=== PATIENT | male | born 1960 | race Caucasian/White ===

== ENCOUNTER 2016-03-29 21:02 | Inpatient (IN) | payer MEDICAID, OTHER ==
[~2016-03-29] VITALS: Ht 191.8 cm; Wt 104.3 kg
[~2016-03-29 21:02] MED LIST: CARD120T4 PO; LISI10TA PO
[2016-03-29 21:08] VITALS: BP 211/134; PULSE 104; RESP 18; TEMP 97.9; O2SAT 92
[2016-03-29 22:49] VITALS: BP 201/123; PULSE 91; RESP 18; O2SAT 97
[2016-03-29] MEDS ORDERED: SODIUM CHLORIDE 0.9% FLUSH 5 ML FLUSH IVF PRN (23:15)
[2016-03-29] MEDS ORDERED: NITROGLYCERIN 2% OINT 1 GM PACKET TOP ONE (23:15)
--- NOTE | 2016-03-29 23:41 | RADRPT ---
EXAM DATE/TIME: 03/29/2016 23:27 [facility] COMPARISON: CHEST SINGLE AP, September 06, 2009, 23:27. INDICATIONS : Cough, shortness of breath. MEDICAL HISTORY : None. SURGICAL HISTORY : None. ENCOUNTER: Initial ACUITY: 1 day PAIN SCORE: 0/10 LOCATION: Bilateral chest FINDINGS: A single view of the chest demonstrates the lungs to be symmetrically aerated without evidence of mas s, infiltrate or effusion. The heart is normal size for AP film. The central bronchopulmonary trino ngs in both hemidiaphragms are well delineated. Osseous structures are intact. CONCLUSION: The lungs are clear. Luis Marrero MD on March 29, 2016 at 23:39 Board Certified Radiologist. This report was verified electronically.
[2016-03-29 23:56] LABS: AUTOMATED NEUTROPHIL # 3.6 TH/MM3 (1.8-7.7); BASOPHIL % 0.8 % (0.0-2.0); EOSINOPHIL # 0.3 TH/MM3 (0-0.4); EOSINOPHIL % 5.6 % (0.0-4.0); HEMATOCRIT 44.5 % (39.0-51.0); HEMO FLAGS DIFF FINAL; LYMPHOCYTE # 1.2 TH/MM3 (1.0-4.8); MEAN CELL VOLUME 85.2 FL (80.0-100.0); MONO % 11.9 % (0.0-8.0); NEUT % 60.7 % (16.0-70.0); PLATELET COUNT 176 TH/MM3 (150-450); RED BLOOD COUNT 5.22 MIL/MM3 (4.50-5.90); RED CELL DISTRIBUTION WIDTH 13.5 % (11.6-17.2); WHITE BLOOD COUNT 5.9 TH/MM3 (4.0-11.0)
[2016-03-30] VITALS (19 sets, daily range): BP systolic 130–158; BP diastolic 78–103; PULSE 61–76; RESP 16–18; TEMP 97.7–98.3; O2SAT 94–100
[2016-03-30 00:04] LABS: APTT (PATIENT) 27.6 SEC (24.3-30.1); PROTHROMBIN TIME - PATIENT 10.7 SEC (9.8-11.6)
[2016-03-30 00:12] LABS: BICARBONATE 26.6 MEQ/L (21.0-32.0); MAGNESIUM 1.9 MG/DL (1.5-2.5)
--- NOTE | 2016-03-30 00:18 | PD ---
HPI Chief Complaint: Respiratory Symptoms Time Seen by Provider: 23:06 Travel History International Travel<30 days: No Contact w/Intl Traveler<30days: No Traveled to known affect area: No History of Present Illness HPI 55-year-old male came to the emergency room with history of sudden onset shortness of breath and was sitting and watching TV today at 8 PM. He says he coughed up Blood twice. No history of chest pain. Patient has not seen a primary care doctor in 10 years. His blood pressure in triage was more than 200 systolic. He says his symptoms have much improved since when it started first. He has never had these symptoms in the past. Patient is not on any medications. [facility] Past Medical History Narrative Medical List of his past medical history as reviewed from the nursing note. He is not a smoker and there is no family history of coronary artery disease. Heart Rhythm Problems: No Cardiac Catheterization: No Cardiovascular Problems: No High Cholesterol: No Congestive Heart Failure: No Diabetes: No Hypertension: No Kidney Stones: Yes Myocardial Infarction: No Past Surgical History Coronary Artery Bypass Graft: No Other Surgery: Yes (LITHOTRIPSY - MULTIPLE TIMES) Social History Alcohol Use: No Tobacco Use: No Substance Use: No Allergies-Medications (Allergen,Severity, Reaction): Coded Allergies: Levaquin (Verified Allergy, Mild, HIVES, 03/29/16) Comments List of his allergies reviewed from the nursing note. Reported Meds & Prescriptions Reported Meds & Active Scripts Active Narrative Medication List of his home medications reviewed from the nursing note. Review of Systems Except as stated in HPI: all other systems reviewed are Neg Physical Exam Narrative GENERAL: Awake, alert, anxious, mild distress SKIN: Warm and dry. HEAD: Atraumatic. Normocephalic. EYES: Pupils equal and round. No scleral icterus. No injection or drainage. ENT: No nasal bleeding or discharge. Mucous membranes pink and moist. NECK: Trachea midline. No JVD. CARDIOVASCULAR: Regular rate and rhythm. No murmur appreciated. RESPIRATORY: No accessory muscle use. Clear to auscultation. Breath sounds equal bilaterally. GASTROINTESTINAL: Abdomen soft, non-tender, nondistended. Hepatic and splenic margins not palpable. MUSCULOSKELETAL: No obvious deformities. No clubbing. No cyanosis. No edema. NEUROLOGICAL: Awake and alert. No obvious cranial nerve deficits. Motor grossly within normal limits. Normal speech. PSYCHIATRIC: Appropriate mood and affect; insight and judgment normal. Data Data Last Documented VS Vital Signs Date Time Temp Pulse Resp B/P Pulse Ox O2 Delivery O2 Flow Rate FiO2 03/29/16 22:49 91 18 201/123 97 Room Air 03/29/16 21:08 97.9 Orders Electrocardiogram (03/29/16 21:42) Basic Metabolic Panel (Bmp) (03/29/16 23:14) B-Type Natriuretic Peptide (03/29/16 23:14) Ckmb (Isoenzyme) Profile (03/29/16 23:14) Complete Blood Count With Diff (03/29/16 23:14) Magnesium (Mg) (03/29/16 23:14) Prothrombin Time / Inr (Pt) (03/29/16 23:14) Act Partial Throm Time (Ptt) (03/29/16 23:14) Troponin I (03/29/16 23:14) Chest, Single Ap (03/29/16 23:14) Ecg Monitoring (03/29/16 23:14) Bilateral Bp Monitoring (03/29/16 23:14) Iv Access Insert/Monitor (03/29/16 23:14) Oximetry (03/29/16 23:14) Oxygen Administration (03/29/16 23:14) Nitroglycerin 2% Oint (Nitroglycerin 2% (03/29/16 23:15) Sodium Chloride 0.9% Flush (Ns Flush) (03/29/16 23:15) CKMB (03/29/16 23:31) CKMB% (03/29/16 23:31) Ct Pulmonary Angiogram (03/30/16 ) Heparin Infusion MEGAN.Q1H (03/30/16 00:34) Heparin Inj (Heparin Inj) (03/30/16 00:45) Heparin-D5w Inj (Heparin-D5w Inj) (03/30/16 00:45) Act Partial Throm Time (Ptt) (03/30/16 00:34) Cbc No Diff, Includes Plts (03/30/16 00:34) Act Partial Throm Time (Ptt) (03/30/16 07:34) Occult Blood (Hemoccult) Stool (03/30/16 00:34) Admit Order (Ed Use Only) (03/30/16 00:34) Admit To Inpatient (03/30/16 ) Vital Signs (Adult) Q4H (03/30/16 00:34) Activity Oob With Assistance (03/30/16 00:34) Bedside Glucose MEGAN.AC&HS (03/30/16 00:34) ^ Infrastructure Solutions Architect / Telemetry .CONTINUOUS (03/30/16 00:34) Intake + Output MEGAN.QSHIFT (03/30/16 00:34) Sodium Chloride 0.9% Flush (Ns Flush) (03/30/16 00:45) Sodium Chloride 0.9% Flush (Ns Flush) (03/30/16 09:00) Acetaminophen (Tylenol) (03/30/16 00:45) Ondansetron Inj (Zofran Inj) (03/30/16 00:45) Prochlorperazine Supp (Compazine Supp) (03/30/16 00:45) Bisacodyl Supp (Dulcolax Supp) (03/30/16 00:45) Magnesium Hydroxide Liq (Milk Of Magnesi (03/30/16 00:45) Sennosides (Senokot) (03/30/16 00:45) Temazepam (Restoril) (03/30/16 00:45) Basic Metabolic Panel (Bmp) (03/31/16 06:00) Complete Blood Count With Diff (03/31/16 06:00) Troponin I (03/30/16 00:34) Troponin I (03/30/16 06:34) Electrocardiogram (03/30/16 00:45) Electrocardiogram (03/30/16 06:45) Electrocardiogram (03/30/16 12:45) Resp Oxygen Corby C Titrat 1-4 L (03/30/16 ) Pt Request For Service (03/30/16 00:34) Case Management Consult (03/30/16 00:34) Scd Bilateral/Knee High MEGAN.BID (03/30/16 00:34) Luis Bilateral/Knee High MEGAN.QSHIFT (03/30/16 00:34) Inpatient Certification (03/30/16 ) Labs Laboratory Tests Test 03/29/16 23:31 White Blood Count 5.9 TH/MM3 Red Blood Count 5.22 MIL/MM3 Hemoglobin 15.1 GM/DL Hematocrit 44.5 % Mean Corpuscular Volume 85.2 FL Mean Corpuscular Hemoglobin 29.0 PG Mean Corpuscular Hemoglobin 34.0 % Concent Red Cell Distribution Width 13.5 % Platelet Count 176 TH/MM3 Mean Platelet Volume 8.3 FL Neutrophils (%) (Auto) 60.7 % Lymphocytes (%) (Auto) 21.0 % Monocytes (%) (Auto) 11.9 % Eosinophils (%) (Auto) 5.6 % Basophils (%) (Auto) 0.8 % Neutrophils # (Auto) 3.6 TH/MM3 Lymphocytes # (Auto) 1.2 TH/MM3 Monocytes # (Auto) 0.7 TH/MM3 Eosinophils # (Auto) 0.3 TH/MM3 Basophils # (Auto) 0.0 TH/MM3 CBC Comment DIFF FINAL Differential Comment Prothrombin Time 10.7 SEC Prothromb Time International 1.0 RATIO Ratio Activated Partial 27.6 SEC Thromboplast Time Sodium Level 143 MEQ/L Potassium Level 4.0 MEQ/L Chloride Level 109 MEQ/L Carbon Dioxide Level 26.6 MEQ/L Anion Gap 7 MEQ/L Blood Urea Nitrogen 22 MG/DL Creatinine 0.85 MG/DL Estimat Glomerular Filtration 94 ML/MIN Rate Random Glucose 91 MG/DL Calcium Level 8.7 MG/DL Magnesium Level 1.9 MG/DL Total Creatine Kinase 376 U/L Creatine Kinase MB 6.4 NG/ML Creatine Kinase MB % 1.7 % Troponin I 0.09 NG/ML B-Type Natriuretic Peptide 114 PG/ML MDM Medical Decision Making Medical Screen Exam Complete: Yes Emergency Medical Condition: Yes Medical Record Reviewed: Yes Interpretation(s) Twelve-lead EKG was reviewed by me. Normal sinus rhythm, interventricular conduction delay, normal axis, poor R-wave progression. Heart rate of 89 bpm. Differential Diagnosis ACS, congestive heart failure, hypertensive crisis, PE Narrative Course 12:27 AM patient was started on 1 inch Nitropaste. His current blood pressure is 157 systolic. Blood test results are back and troponin is elevated. I've ordered a CT pulmonary angiogram which is pending. I will start the patient on heparin bolus and drip and 2 baby aspirin. Awaiting for the hospitalist to call back for admission. Procedures EKG Prior to Arrival: Yes Diagnosis Primary Impression: ACS (acute coronary syndrome) Additional Impression: Hypertensive urgency Admitting Information Admitting Physician Requests: Admit Scripts Lisinopril 20 Mg Tab20 Mg PO DAILY #30 TAB Ref 0 Prov:Windy Manriquez MD 03/31/16 Metoprolol Tartrate 25 Mg Tab25 Mg PO BID #60 TAB Ref 0 Prov:Windy Manriquez MD 03/31/16 Aspirin 81 Mg Tabdr81 Mg PO DAILY #30 TAB Prov:Windy Manriquez MD 03/31/16 Atorvastatin (Lipitor)40 Mg Tab40 Mg PO DAILY #30 TAB Prov:Windy Manriquez MD 03/31/16 Marshall Sauceda MD Mar 30, 2016 00:18
[2016-03-30 00:27] LABS: CKMB 6.4 NG/ML (0.5-3.6)
[2016-03-30] MEDS ORDERED: IOHEXOL 350 MG/ML 10 ML VIAL (for RAD DIAG) IV ONE (00:39)
[2016-03-30] MEDS ORDERED: MAGNESIUM HYDROXIDE SUSP 30 ML CUP PO PRN (00:45)
[2016-03-30] MEDS ORDERED: PROCHLORPERAZINE 25 MG SUPP PR PRN (00:45)
[2016-03-30] MEDS ORDERED: TEMAZEPAM 15 MG CAP PO PRN (00:45)
[2016-03-30] MEDS ORDERED: BISACODYL 10 MG SUPP PR PRN (00:45)
[2016-03-30] MEDS ORDERED: HEPARIN SODIUM - IV 10,000 UNITS/10 ML VIAL IV ONE (00:45)
[2016-03-30] MEDS ORDERED: HEPARIN-D5W INJ 250 ML IV SCH (00:45)
[2016-03-30] MEDS ORDERED: ONDANSETRON HCL 4 MG/2 ML VIAL IVP PRN (00:45)
[2016-03-30] MEDS ORDERED: SODIUM CHLORIDE 0.9% FLUSH 5 ML FLUSH FLUSH PRN (00:45)
[2016-03-30] MEDS ORDERED: SENNOSIDES 8.6 MG TAB PO PRN (00:45)
--- NOTE | 2016-03-30 00:53 | RADRPT ---
EXAM DATE/TIME: 03/30/2016 00:36 [facility] COMPARISON: No previous studies available for comparison. INDICATIONS : Short of breath with hemoptysis. IV CONTRAST: 74 cc Omnipaque 350 (iohexol) IV RADIATION DOSE: 25.05 CTDIvol (mGy) MEDICAL HISTORY : None SURGICAL HISTORY : None. ENCOUNTER: Initial ACUITY: 1 day PAIN SCALE: 0/10 LOCATION: chest TECHNIQUE: Volumetric scanning of the chest was performed using a pulmonary embolism protocol MIP images were re constructed. Using automated exposure control and adjustment of the mA and/or kV according to patien t size, radiation dose was kept as low as reasonably achievable to obtain optimal diagnostic quality images. FINDINGS: PULMONARY ARTERIES: No filling defects are seen in the pulmonary arteries through the segmental level. LUNGS: There are some patchy areas of increased ground substance in the central lower lungs without focal in filtrates and no nodular densities. PLEURAE: There is no pleural thickening or pleural effusion. MEDIASTINUM: There is good visualization of the great vessels of the middle mediastinum. No evidence of mediastin al or hilar adenopathy/mass. MUSCULOSKELETAL: Within normal limits for patient age. CONCLUSION: The study is negative for pulmonary embolism. Luis Marrero MD on March 30, 2016 at 0:49 Board Certified Radiologist. This report was verified electronically.
[2016-03-30 00:56] LABS: HEMATOCRIT 43.8 % (39.0-51.0); MEAN CELL VOLUME 85.9 FL (80.0-100.0); MEAN CORPUSCULAR HEMOGLOBIN 28.5 PG (27.0-34.0); MEAN CORPUSCULAR HGB CONC 33.2 % (32.0-36.0); PLATELET COUNT 175 TH/MM3 (150-450); RED BLOOD COUNT 5.09 MIL/MM3 (4.50-5.90); RED CELL DISTRIBUTION WIDTH 13.3 % (11.6-17.2); REVIEW FLAG FINAL; WHITE BLOOD COUNT 6.5 TH/MM3 (4.0-11.0)
--- NOTE | 2016-03-30 01:00 | HHI.HP ---
[facility] No Primary Care Physician Admission Diagnosis shortness of breath, acute coronary syndrome Diagnoses: Chief Complaint: chest pain, sob Travel History International Travel<30 Days: No Contact w/Intl Traveler <30 Da: No Traveled to Known Affected Are: No History of Present Illness 55-year-old male with PMH of HTN, kidney stones came to the emergency room with history of sudden onset shortness of breath and was sitting and watching TV today at 8 PM. He says he coughed up Blood twice. No history of chest pain. Patient has not seen a primary care doctor in 10 years. His blood pressure in triage was more than 200 systolic. He says his symptoms have much improved since when it started first. He has never had these symptoms in the past. Patient is not on any medications. Says she was supposed to take BP meds but he doesn't have insurance now to cover meds. He reports chest pain intermittent, non radiating, nonexertional, associated with SOB. His main complaints is sob. Review of Systems Constitutional: DENIES: Fever, Chills, Change in appetite Endocrine: DENIES: Heat/cold intolerance Eyes: DENIES: Blurred vision, Eye pain Ears, nose, mouth, throat: DENIES: Tinnitus, Hearing loss, Vertigo, Nasal discharge, Oral lesions, Throat pain, Hoarseness, Ear Pain, Running Nose, Epistaxis, Sinus Pain, Toothache, Odynophagia Respiratory: COMPLAINS OF: Shortness of breath, DENIES: Apneas, Cough, Snoring , Wheezing, Hemoptysis, Sputum production Cardiovascular: COMPLAINS OF: Chest pain, DENIES: Palpitations, Syncope, Dyspnea on Exertion, PND, Lower Extremity Edema, Orthopnea, Claudication Gastrointestinal: DENIES: Abdominal pain, Black stools, Bloody stools, Constipation, Diarrhea, Nausea, Vomiting, Difficulty Swallowing, Anorexia Genitourinary: DENIES: Urinary incontinence, Urgency, Hematuria Musculoskeletal: DENIES: Joint pain, Muscle aches, Stiffness, Joint Swelling, Back pain, Neck pain Integumentary: DENIES: Rash Neurologic: DENIES: Abnormal gait, Headache, Localized weakness, Paresthesias, Seizures, Speech Problems, Tremor, Poor Balance Psychiatric: DENIES: Anxiety, Depression Past Family Social History Past Medical History HTN, kidney stones Past Surgical History multiple lithotripsies Allergies: Coded Allergies: Levaquin (Verified Allergy, Mild, HIVES, 03/29/16) Family History Other COPD/emphysema she was a smoker, PAD Family h/o migraines, cancer unspecified, PAD Father had kidney failure at the age of 90 Social History Denies alcohol use, tobacco use or illicit drug use. Physical Exam Vital Signs Vital Signs Date Time Temp Pulse Resp B/P Pulse Ox O2 Delivery O2 Flow Rate FiO2 03/29/16 22:49 91 18 201/123 97 Room Air 03/29/16 22:47 87 03/29/16 21:08 97.9 104 18 211/134 92 Room Air Physical Exam GENERAL: This is a well-nourished, well-developed patient, in no apparent distress. SKIN: No rashes, ecchymoses or lesions. Cool and dry. HEAD: Atraumatic. Normocephalic. No temporal or scalp tenderness. EYES: Pupils equal round and reactive. Extraocular motions intact. No scleral icterus. No injection or drainage. ENT: Nose without bleeding, purulent drainage or septal hematoma. Throat without erythema, tonsillar hypertrophy or exudate. Uvula midline. Airway patent. NECK: Trachea midline. No JVD or lymphadenopathy. Supple, nontender, no meningeal signs. CARDIOVASCULAR: Regular rate and rhythm without murmurs, gallops, or rubs. RESPIRATORY: Clear to auscultation. Breath sounds equal bilaterally. No wheezes , rales, or rhonchi. GASTROINTESTINAL: Abdomen soft, non-tender, nondistended. No hepato-splenomegaly , or palpable masses. No guarding. MUSCULOSKELETAL: Extremities without clubbing, cyanosis, or edema. No joint tenderness, effusion, or edema noted. No calf tenderness. Negative Homans sign bilaterally. NEUROLOGICAL: Awake and alert. Cranial nerves II through XII intact. Motor and sensory grossly within normal limits. Five out of 5 muscle strength in all muscle groups. Normal speech. Laboratory Laboratory Tests Test 03/29/16 03/30/16 23:31 00:44 White Blood Count 5.9 6.5 Red Blood Count 5.22 5.09 Hemoglobin 15.1 14.5 Hematocrit 44.5 43.8 Mean Corpuscular Volume 85.2 85.9 Mean Corpuscular Hemoglobin 29.0 28.5 Mean Corpuscular Hemoglobin 34.0 33.2 Concent Red Cell Distribution Width 13.5 13.3 Platelet Count 176 175 Mean Platelet Volume 8.3 8.4 Neutrophils (%) (Auto) 60.7 Lymphocytes (%) (Auto) 21.0 Monocytes (%) (Auto) 11.9 Eosinophils (%) (Auto) 5.6 Basophils (%) (Auto) 0.8 Neutrophils # (Auto) 3.6 Lymphocytes # (Auto) 1.2 Monocytes # (Auto) 0.7 Eosinophils # (Auto) 0.3 Basophils # (Auto) 0.0 CBC Comment DIFF FINAL Differential Comment Prothrombin Time 10.7 Prothromb Time International 1.0 Ratio Activated Partial 27.6 Thromboplast Time Sodium Level 143 Potassium Level 4.0 Chloride Level 109 Carbon Dioxide Level 26.6 Anion Gap 7 Blood Urea Nitrogen 22 Creatinine 0.85 Estimat Glomerular Filtration 94 Rate Random Glucose 91 Calcium Level 8.7 Magnesium Level 1.9 Total Creatine Kinase 376 Creatine Kinase MB 6.4 Creatine Kinase MB % 1.7 Troponin I 0.09 B-Type Natriuretic Peptide 114 Result Diagram: 03/30/16 0044 03/29/16 2331 Assessment and Plan Assessment and Plan ACS (acute coronary syndrome) Hypertensive urgency Elevated troponin. Will trend trops. EKG reviewed: Normal sinus rhythm, interventricular conduction delay, normal axis, poor R-wave progression. Heart rate of 89 bpm. CTA negative On 1 inch Nitropaste. Started on heparin bolus and drip Receievd ASain the ED Continue ASA. Start metoprolol and atorvastatin Check 2d echo. A1c, lipid panel. Labetalol 20 mg IV once. Continue with labetalol IV 10 mg when necessary if high blood pressure. Monitor vital signs closely. Consult cardio DVT ppx with lovenox/SCD/TEds Code Status Full Discussed Condition With Patient, family at bedside, ED physician, nurse Physician Certification 2 Midnight Certification Type: Admission for Inpatient Services Order for Inpatient Services The services are ordered in accordance with Medicare regulations or non- Medicare payer requirements, as applicable. In the case of services not specified as inpatient-only, they are appropriately provided as inpatient services in accordance with the 2-midnight benchmark. Estimated LOS (days): 3 days is the estimated time the patient will need to remain in the hospital, assuming treatment plan goals are met and no additional complications. Post-Hospital Plan: Home Windy Manriquez MD Mar 30, 2016 01:00
[2016-03-30 01:08] LABS: APTT (PATIENT) 27.1 SEC (24.3-30.1)
[2016-03-30] MEDS ORDERED: LABETALOL HCL 100 MG/20 ML VIAL IV PUSH PRN (01:15)
[2016-03-30] MEDS ORDERED: LABETALOL HCL 100 MG/20 ML VIAL IV PUSH ONE (01:15)
[2016-03-30] MEDS: ACETAMINOPHEN 325 MG TAB PO PRN ×3 (02:24→21:46)
[2016-03-30 05:50] LABS: ALT (GPT) 25 U/L (12-78); AST (GOT) 17 U/L (15-37)
[2016-03-30 05:54] LABS: ALKALINE PHOSPHATASE 67 U/L (45-117); HDL CHOLESTEROL 63.2 MG/DL (40.0-60.0); INDIRECT BILIRUBIN 0.4 MG/DL (0.0-0.8); LDL CHOLESTEROL 143 MG/DL (0-99); TOTAL BILIRUBIN ADULT 0.5 MG/DL (0.2-1.0)
[2016-03-30] MEDS: NITROGLYCERIN 2% OINT 1 GM PACKET TOPICAL SCH ×2 (06:24→13:50)
[2016-03-30] MEDS: METOPROLOL TARTRATE 25 MG TAB PO SCH ×2 (07:59→20:10)
[2016-03-30] MEDS: SODIUM CHLORIDE 0.9% FLUSH 5 ML FLUSH FLUSH SCH ×2 (08:00→20:14)
[2016-03-30 08:46] LABS: APTT (PATIENT) 31.7 SEC (24.3-30.1)
[2016-03-30] MEDS ORDERED: ATORVASTATIN 10 MG TAB PO SCH (09:00)
--- NOTE | 2016-03-30 09:34 | MB ---
cc: DYLAN OLIVEIRA DO DATE OF CONSULTATION 03/30/2016 REASON FOR CONSULTATION Elevated troponins HISTORY OF PRESENT ILLNESS Aiden Pickard is a pleasant 55-year-old male who presents to [facility] emergency room on March 29, 2016 due to shortness of breath. He states that he was watching TV around 08:00 p.m. and started noticing that he was getting more short of breath. He states during this, he started to cough more and started noticing some blood and sputum he was bringing up. Sputum was clear in color. He denies chest pain during these events. Upon arrival to the emergency room, he was found to be extremely hypertensive with a blood pressure of 211/134. He after his blood pressure was decreased, he started to feel better and less short of breath. He has never had symptoms like this in the past. He previously was on blood pressure medicines, but did not have insurance at the time to cover him so he stopped all medications. Since that time, he now has insurance and is willing to continue on meds for his high blood pressure. PAST MEDICAL HISTORY 1. Hypertension 2. Kidney stones PAST SURGICAL HISTORY Multiple lithotripsies. ALLERGIES LEVAQUIN. MEDICATIONS Previously on: 1. Lisinopril/Hydrochlorothiazide 10/12.5 2. Cardizem 120 mg b.i.d. but stopped due to problems with insurance before. FAMILY HISTORY Father had kidney failure at the age of 90. Migraines and unspecified cancer run in his family. SOCIAL HISTORY Denies alcohol, tobacco or illicit drug abuse. REVIEW OF SYSTEMS Fourteen systems were reviewed including osteopathic pertinent positives and negatives above, otherwise negative. PHYSICAL EXAMINATION VITAL SIGNS: Temperature 97.7, heart rate 63, blood pressure 138/96, respirations 18, pulse ox 100% on room air. GENERAL: The patient appears well in no acute distress, alert, awake and oriented x3. HEAD, EYES, EARS, NOSE, AND THROAT: Extraocular muscles intact. Mucous membranes moist. NECK: Supple. No JVD at 45 degrees. No carotid bruits heard bilaterally. Carotid upstroke is brisk in nature. HEART: Regular rate and rhythm. Positive first and second heart sounds with no murmurs, gallops or rubs. PMI is nondisplaced. LUNGS: Clear to auscultation bilaterally. No wheezes, rales or rhonchi. ABDOMEN: Soft, nontender, nondistended. No organomegaly noted. EXTREMITIES: Show no clubbing, cyanosis or edema. Femoral and distal pulses intact bilaterally. NEUROLOGIC: No focal deficits. SKIN: Warm, dry and intact. OSTEOPATHIC: No kyphoscoliosis, lordosis or paraspinal tender points. LABORATORY FINDINGS Hemoglobin 14.5, hematocrit 43.8, platelets 175. Potassium 4.0, BUN 22, creatinine 0.85, troponin 0.09 decreasing to 0.08. BNP 114, total cholesterol 217, LDL 143, HDL 63, triglycerides 55. Electrocardiogram (March 30, 2016 at 0517) normal sinus rhythm at 72 beats per minute, prolonged QTC at 465, nonspecific ST-T wave changes. IMPRESSION 1. Elevated troponin most likely type 2 due to hypertensive urgency, cannot rule out cannot rule out underlying ischemia. 2. Hypertensive urgency with a blood pressure of 211/134 on arrival 3. Shortness of breath possibly due to hypertensive urgency. 4. History of hypertension for which the patient stopped medications due to not having insurance, although he has insurance at this time. 5. Hyperlipidemia RECOMMENDATIONS 1. A Mr. Pickard appears to have a hypertensive episode which possibly caused him to have a minimal elevation of his troponins. Due to this, he will undergo pharmacologic nuclear stress testing. 2. We will check a 2-D echo to look at his overall left ventricular function, cardiac structure and valvopathies. 3. He will need to be started on blood pressure medication and this needs to be followed as an outpatient. 4. He should continue on statin therapy. 5. Further recommendations after stress test and echocardiogram. Thank you for allowing me to see Aiden Pickard. If there are any questions, please do not hesitate to call. Dylan Oliveira DO VGP/DJL /9:01 AM /9:16 AM
[2016-03-30] MEDS: ASPIRIN 81 MG CHEW TAB CHEW SCH (09:47)
[2016-03-30] MEDS ORDERED: LISI10TA PO (11:30)
[2016-03-30] MEDS ORDERED: CARD120T4 PO (11:30)
[2016-03-30 11:40] LABS: HEMOGLOBIN A1b 1.5 %; HEMOGLOBIN Ao 86.4 %; HEMOGLOBIN LA1C 1.8 %; HEMOGLOBIN P3 3.4 %
[2016-03-30] MEDS ORDERED: REGADENOSON INJ 0.4 MG/5 ML SYR ONE (12:33)
[2016-03-30 14:22] LABS: APTT (PATIENT) 28.2 SEC (24.3-30.1)
--- NOTE | 2016-03-30 14:22 | RADRPT ---
EXAM DATE/TIME: 03/30/2016 12:06 [facility] COMPARISON: No previous studies available for comparison. INDICATIONS : Chest pain, elevated troponin and shortness of breath. Angina. DOSE: 30 mCi Tc99m Myoview at stress. 10.9 mCi Tc99m Myoview at rest. 0.4 mg Lexiscan STRESS SYMPTOMS: Nausea, chest pain and dyspnea. EJECTION FRACTION: 36% MEDICAL HISTORY : Hypertension. SURGICAL HISTORY : Lithotripsy ENCOUNTER: Initial ACUITY: 1 day PAIN SCALE: 2/10 LOCATION: Bilateral chest TECHNIQUE: The patient underwent pharmacologic stress with infusion of prescribed dose. Continuous ECG tracing was monitored during stress. Gated SPECT imaging was performed after stress and conventional SPECT i maging was performed at rest. The examination was performed on a SPECT/CT scanner, both attenuation and non-corrected datasets were reviewed. FINDINGS: There is vague dilated ventricular cavity. Moderate gut activity does obscure the inferior wall. . The best perfused myocardium is the anterior septal region. Scattered fixed defects are seen in t he inferior septal region. There is no redistribution suggest stress-induced ischemia. The ejection fraction is 36% with global hypokinesia kinesis. CONCLUSION: Negative for stress-induced ischemia. Significantly depressed ejection fraction 36%. RISK CATEGORY: Intermediate (1-3% Annual Mortality Rate) Sumit Salas MD FACR on March 30, 2016 at 14:19 Board Certified Radiologist. This report was verified electronically.
--- NOTE | 2016-03-30 15:30 | EKG ---
Date Performed: 03/29/2016 Time Performed: 22:46:46 PTAGE: 55 years EKG: NORMAL Sinus rhythm LEFT ATRIAL ENLARGEMENT INTRAVENTRICULAR CONDUCTION DELAY NONSPECIFIC ST-T-WAVE CHANGES ABNORMAL ECG PREVIOUS TRACING : 03/29/2016 21.46 Since previous tracing, no significant change noted DOCTOR: Sangita Yu Interpretating Date/Time 03/30/2016 15:30:07
--- NOTE | 2016-03-30 15:32 | EKG ---
Date Performed: 03/30/2016 Time Performed: 05:17:34 PTAGE: 55 years EKG: Normal Sinus rhythm Intraventricular conduction delay Nonspecific ST-T wave changes Borderline ECG PREVIOUS TRACING : 03/29/2016 22.46 Since previous tracing, no significant change noted DOCTOR: Sangita uY Interpretating Date/Time 03/30/2016 15:31:06
[2016-03-30] MEDS: HEPARIN SODIUM - SQ 10,000 UNITS/ML VIAL SQ SCH (17:15)
--- NOTE | 2016-03-30 17:21 | HHI.PR ---
Subjective Remarks Follow-up for potential emergency, late entry, seen around 1 pm Blood pressure in the 130s to 150s systolic. Denies any chest pain or shortness breath, no nausea or vomiting. Feels better now. Denies any headache. Objective Vitals Vital Signs Date Time Temp Pulse Resp B/P Pulse Ox O2 Delivery O2 Flow Rate FiO2 03/30/16 17:08 69 03/30/16 16:19 67 03/30/16 15:16 98.2 66 18 142/89 99 03/30/16 15:16 66 03/30/16 14:00 65 03/30/16 11:35 63 03/30/16 11:35 97.8 63 18 130/80 97 03/30/16 11:08 94 21 03/30/16 10:32 18 03/30/16 10:05 65 03/30/16 09:19 67 03/30/16 08:29 63 03/30/16 08:29 97.7 63 18 138/96 100 03/30/16 04:00 66 03/30/16 03:21 97.9 61 16 147/103 98 03/30/16 03:00 62 03/30/16 02:28 158/97 03/30/16 01:06 73 18 157/102 99 Room Air 03/30/16 01:04 99 Room Air 03/30/16 01:04 99 Room Air 03/29/16 22:49 91 18 201/123 97 Room Air 03/29/16 22:47 87 03/29/16 21:08 97.9 104 18 211/134 92 Room Air Result Diagram: 03/30/16 0044 03/29/16 2331 Objective Remarks Not in distress, well-nourished, looks stated age PERRL, pink conjunctiva without injection, anicteric Nose without bleeding, airway patent, oropharynx clear Supple neck, no masses or thyromegaly, trachea midline Normal rate and regular rhythm, no murmurs gallops or rubs appreciated. Clear to auscultation and symmetric bilaterally, normal respiratory effort. Normal bowel sounds, soft, non-tender, nondistended, no guarding. Extremities without clubbing, cyanosis, or edema. No rash of generalized distribution. Skin is warm and dry. AAO x3, no cranial nerve deficits, moves all 4 extremities, no focal neurologic deficits Normal mood, appropriate affect A/P Assessment and Plan Hypertensive urgency - continue metoprolol, Vasotec as needed. Blood pressure more controlled. Continue nitro paste for now. Start lisinopril. Wean from nitroglycerin. Non-ST elevated myocardial infarction-troponin elevation 0.09, could be secondary to hypertensive urgency, demand mediated, consult cardiology, for stress testing today-negative for stress-induced ischemia per stress test. Ejection fraction is 36%, start lisinopril.. Follow-up echocardiogram, CTA negative. Continue aspirin, statin, per cardiology, may stop heparin. DVT prophylaxis: Heparin subcutaneously. Rosalia Barry MD Mar 30, 2016 17:21
[2016-03-30] MEDS ORDERED: ENALAPRILAT 1.25 MG/ML VIAL IV PUSH PRN (17:30)
[2016-03-30] MEDS: LISINOPRIL 20 MG TAB PO SCH (17:52)
--- NOTE | 2016-03-30 22:00 | EKG ---
Date Performed: 03/30/2016 Time Performed: 15:12:30 PTAGE: 55 years EKG: Sinus rhythm --- Suspect arm lead reversal - only aVF, V1-V6 analyzed --- Lateral T wave changes are nonspecific Borderline ECG PREVIOUS TRACING : 03/30/2016 05.17 Unable to compare due to assumed arm lead reversal DOCTOR: Dylan Sanches Interpretating Date/Time 03/30/2016 21:59:36
--- NOTE | 2016-03-30 22:37 | EKG ---
Date Performed: 03/29/2016 Time Performed: 21:46:11 PTAGE: 55 years EKG: Sinus rhythm POSSIBLE LEFT ATRIAL ENLARGEMENT NONSPECIFIC T-WAVE ABNORMALITY BORDERLINE ECG PREVIOUS TRACING : 09/07/2009 11.00 Since previous tracing, no significant change noted DOCTOR: Dylan Sanches Interpretating Date/Time 03/30/2016 22:36:53
[2016-03-31] VITALS (17 sets, daily range): BP systolic 144–153; BP diastolic 65–105; PULSE 55–80; RESP 18; TEMP 98–98.2; O2SAT 97–98
[2016-03-31] MEDS: HEPARIN SODIUM - SQ 10,000 UNITS/ML VIAL SQ SCH ×2 (03:17→08:00)
[2016-03-31 06:46] LABS: BICARBONATE 24.4 MEQ/L (21.0-32.0)
[2016-03-31 07:07] LABS: AUTOMATED NEUTROPHIL # 4.3 TH/MM3 (1.8-7.7); BASOPHIL % 0.6 % (0.0-2.0); EOSINOPHIL # 0.5 TH/MM3 (0-0.4); HEMATOCRIT 45.1 % (39.0-51.0); HEMO FLAGS DIFF FINAL; LYMPHOCYTE # 1.4 TH/MM3 (1.0-4.8); MEAN CORPUSCULAR HEMOGLOBIN 29.2 PG (27.0-34.0); MEAN CORPUSCULAR HGB CONC 33.9 % (32.0-36.0); MONO % 10.1 % (0.0-8.0); NEUT % 62.3 % (16.0-70.0); PLATELET COUNT 168 TH/MM3 (150-450); RED BLOOD COUNT 5.24 MIL/MM3 (4.50-5.90); RED CELL DISTRIBUTION WIDTH 13.3 % (11.6-17.2); WHITE BLOOD COUNT 6.9 TH/MM3 (4.0-11.0)
[2016-03-31] MEDS: ASPIRIN 81 MG CHEW TAB CHEW SCH (08:01)
[2016-03-31] MEDS: LISINOPRIL 20 MG TAB PO SCH (08:01)
[2016-03-31] MEDS: SODIUM CHLORIDE 0.9% FLUSH 5 ML FLUSH FLUSH SCH (08:01)
[2016-03-31] MEDS: METOPROLOL TARTRATE 25 MG TAB PO SCH (08:01)
--- NOTE | 2016-03-31 08:19 | HHI.PR ---
Subjective Remarks Feels much better. No chest pain, sob, n/v/d/c. Had some left hand numbness yesterday. Not today. He has dyslexia, speech at baseline. No fever or chills. Objective Vitals Vital Signs Date Time Temp Pulse Resp B/P Pulse Ox O2 Delivery O2 Flow Rate FiO2 03/31/16 07:53 98.2 77 18 147/105 97 03/31/16 07:00 70 03/31/16 05:00 70 03/31/16 04:38 98.0 63 18 153/95 98 03/31/16 04:00 55 03/31/16 03:00 64 03/31/16 02:00 70 03/31/16 01:00 55 03/31/16 00:00 60 03/30/16 23:05 98.3 76 18 131/78 98 03/30/16 23:00 64 03/30/16 20:10 98.0 74 18 137/87 98 03/30/16 18:01 66 03/30/16 17:08 69 03/30/16 16:19 67 03/30/16 15:16 98.2 66 18 142/89 99 03/30/16 15:16 66 03/30/16 14:00 65 03/30/16 11:35 63 03/30/16 11:35 97.8 63 18 130/80 97 03/30/16 11:08 94 21 03/30/16 10:32 18 03/30/16 10:05 65 03/30/16 09:19 67 03/30/16 08:29 63 03/30/16 08:29 97.7 63 18 138/96 100 I/O 03/30/16 03/30/16 03/30/16 03/31/16 03/31/16 03/31/16 07:00 15:00 23:00 07:00 15:00 23:00 Intake Total 688 ml 360 ml Output Total 550 ml 625 ml Balance 138 ml -265 ml Intake Oral 600 ml 360 ml IV Total 88 ml Output Urine Total 550 ml 625 ml # Bowel Movements 1 Result Diagram: 03/31/16 0535 03/31/16 0535 Imaging Last Impressions Myocardial Perfusion Scan Nuc Med 03/30/16 0000 Signed Impressions: Service Date/Time: Wednesday, March 30, 2016 12:06 - CONCLUSION: Negative for stress-induced ischemia. Significantly depressed ejection fraction 36%%. RISK CATEGORY: Intermediate (1-3%% Annual Mortality Rate) Sumit Salas MD FACR CT Angiography 03/30/16 0000 Signed Impressions: Service Date/Time: Wednesday, March 30, 2016 00:36 - CONCLUSION: The study is negative for pulmonary embolism. Luis Marrero MD Chest X-Ray 03/29/16 2314 Signed Impressions: Service Date/Time: March 23:27 - CONCLUSION: The lungs are clear. Luis Marrero MD Objective Remarks GENERAL: This is a well-nourished, well-developed patient, in no apparent distress. SKIN: No rashes, ecchymoses or lesions. Cool and dry. HEAD: Atraumatic. Normocephalic. No temporal or scalp tenderness. EYES: Pupils equal round and reactive. Extraocular motions intact. No scleral icterus. No injection or drainage. ENT: Nose without bleeding, purulent drainage or septal hematoma. Throat without erythema, tonsillar hypertrophy or exudate. Uvula midline. Airway patent. NECK: Trachea midline. No JVD or lymphadenopathy. Supple, nontender, no meningeal signs. CARDIOVASCULAR: Regular rate and rhythm without murmurs, gallops, or rubs. RESPIRATORY: Clear to auscultation. Breath sounds equal bilaterally. No wheezes , rales, or rhonchi. GASTROINTESTINAL: Abdomen soft, non-tender, nondistended. No hepato-splenomegaly , or palpable masses. No guarding. MUSCULOSKELETAL: Extremities without clubbing, cyanosis, or edema. No joint tenderness, effusion, or edema noted. No calf tenderness. Negative Homans sign bilaterally. NEUROLOGICAL: Awake and alert. Cranial nerves II through XII intact. Motor and sensory grossly within normal limits. Five out of 5 muscle strength in all muscle groups. Normal speech, patient has dyslexia, at baseline. A/P Assessment and Plan Hypertensive urgency - continue metoprolol, Vasotec as needed. Blood pressure more controlled. Continue nitro paste for now. Start lisinopril. Wean from nitroglycerin. Non-ST elevated myocardial infarction-troponin elevation 0.09, could be secondary to hypertensive urgency, demand mediated, consult cardiology, for stress testing today-negative for stress-induced ischemia per stress test. Ejection fraction is 36%, start lisinopril.. Follow-up echocardiogram, CTA negative. Continue aspirin, statin, BB per cardiology, may stop heparin. Seen by Dr Tia lobato, stress test with intermediate risk. 2D ECHO pending DVT prophylaxis: SCD/TEDs Discussed with the patient, nurse. DC plan if ECHO normal, and cleared by cardio. Windy Manriquez MD Mar 31, 2016 08:19
[2016-03-31] MEDS ORDERED: ASPI1TAB69 PO (08:21)
[2016-03-31] MEDS ORDERED: LIPI40TA PO (08:21)
[2016-03-31] MEDS ORDERED: METO25TA3 PO ×2 (08:21→12:47)
--- NOTE | 2016-03-31 08:21 | HHI.DCPOC ---
Discharge Care Plan Goals to Promote Your Health * To prevent worsening of your condition and complications * To maintain your health at the optimal level Directions to Meet Your Goals Take your medications as prescribed Follow your dietary instruction Follow activity as directed Keep your appointments as scheduled Take your immunizations and boosters as scheduled If your symptoms worsen call your PCP, if no PCP go to Urgent Care Center or Emergency Room Smoking is Dangerous to Your Health. Avoid second hand smoke Call the 24-hour hour crisis hotline for domestic abuse at Windy Manriquez MD Mar 31, 2016 08:21
[2016-03-31] MEDS ORDERED: ATORVASTATIN 40 MG TAB PO SCH (09:00)
[2016-03-31] MEDS ORDERED: METOPROLOL TARTRATE 25 MG TAB PO ONE (11:00)
--- NOTE | 2016-03-31 11:00 | PD.CARD.PN ---
Subjective Subjective Remarks No chest pain, no shortness of breath Objective Medications Current Medications Medications (Trade) Dose Ordered Sig/Boni Route Start Time Stop Time Status Last Admin (Tylenol) 650 mg Q4H PRN PO 03/30/16 00:45 03/30/16 21:46 (Zofran Inj) 4 mg Q6H PRN IVP 03/30/16 00:45 (Compazine Supp) 25 mg Q12H PRN MI 03/30/16 00:45 (Dulcolax Supp) 10 mg DAILY PRN MI 03/30/16 00:45 (Milk Of Magnesia Liq) 30 ml Q12H PRN PO 03/30/16 00:45 (Senokot) 17.2 mg Q12H PRN PO 03/30/16 00:45 (Restoril) 15 mg HS PRN PO 03/30/16 00:45 (Lopressor) 12.5 mg Q12HR PO 03/30/16 09:00 03/31/16 08:01 (Trandate Inj) 10 mg Q4H PRN IV PUSH 03/30/16 01:15 (Lipitor) 40 mg DAILY PO 03/31/16 09:00 03/31/16 08:01 (Aspirin Chew) 81 mg DAILY CHEW 03/30/16 10:00 03/31/16 08:01 (Heparin Inj) 5,000 units Q8H SQ 03/30/16 17:00 03/31/16 08:00 (Prinivil) 20 mg DAILY PO 03/30/16 17:20 03/31/16 08:01 (Vasotec Inj) 1.25 mg Q6H PRN IV PUSH 03/30/16 17:30 Vital Signs / I&O Vital Signs Date Time Temp Pulse Resp B/P Pulse Ox O2 Delivery O2 Flow Rate FiO2 03/31/16 10:00 79 03/31/16 09:00 80 03/31/16 08:00 73 03/31/16 07:53 98.2 77 18 147/105 97 03/31/16 07:00 70 03/31/16 05:00 70 03/31/16 04:38 98.0 63 18 153/95 98 03/31/16 04:00 55 03/31/16 03:00 64 03/31/16 02:00 70 03/31/16 01:00 55 03/31/16 00:00 60 03/30/16 23:05 98.3 76 18 131/78 98 03/30/16 23:00 64 03/30/16 20:10 98.0 74 18 137/87 98 03/30/16 18:01 66 03/30/16 17:08 69 03/30/16 16:19 67 03/30/16 15:16 98.2 66 18 142/89 99 03/30/16 15:16 66 03/30/16 14:00 65 03/30/16 11:35 63 03/30/16 11:35 97.8 63 18 130/80 97 03/30/16 11:08 94 21 I/O 03/30/16 03/30/16 03/30/16 03/31/16 03/31/16 03/31/16 07:00 15:00 23:00 07:00 15:00 23:00 Intake Total 688 ml 360 ml Output Total 550 ml 625 ml Balance 138 ml -265 ml Intake Oral 600 ml 360 ml IV Total 88 ml Output Urine Total 550 ml 625 ml # Bowel Movements 1 Physical Exam GENERAL: NAD, AAOx3 SKIN: Warm and dry. HEAD: Atraumatic. Normocephalic. EYES: Pupils equal and round. No scleral icterus. No injection or drainage. ENT: No nasal bleeding or discharge. Mucous membranes pink and moist. NECK: Trachea midline. No JVD. CARDIOVASCULAR: Regular rate and rhythm. RESPIRATORY: No accessory muscle use. Clear to auscultation. Breath sounds equal bilaterally. GASTROINTESTINAL: Abdomen soft, non-tender, nondistended. Hepatic and splenic margins not palpable. MUSCULOSKELETAL: Extremities without clubbing, cyanosis, or edema. No obvious deformities. NEUROLOGICAL: Awake and alert. No obvious cranial nerve deficits. Motor grossly within normal limits. Five out of 5 muscle strength in the arms and legs. Normal speech. PSYCHIATRIC: Appropriate mood and affect; insight and judgment normal. Laboratory Laboratory Tests Test 03/30/16 03/30/16 03/31/16 11:48 14:03 05:35 Troponin I 0.06 NG/ML Activated Partial 28.2 SEC Thromboplast Time White Blood Count 6.9 TH/MM3 Red Blood Count 5.24 MIL/MM3 Hemoglobin 15.3 GM/DL Hematocrit 45.1 % Mean Corpuscular Volume 86.0 FL Mean Corpuscular Hemoglobin 29.2 PG Mean Corpuscular Hemoglobin 33.9 % Concent Red Cell Distribution Width 13.3 % Platelet Count 168 TH/MM3 Mean Platelet Volume 8.6 FL Neutrophils (%) (Auto) 62.3 % Lymphocytes (%) (Auto) 20.0 % Monocytes (%) (Auto) 10.1 % Eosinophils (%) (Auto) 7.0 % Basophils (%) (Auto) 0.6 % Neutrophils # (Auto) 4.3 TH/MM3 Lymphocytes # (Auto) 1.4 TH/MM3 Monocytes # (Auto) 0.7 TH/MM3 Eosinophils # (Auto) 0.5 TH/MM3 Basophils # (Auto) 0.0 TH/MM3 CBC Comment DIFF FINAL Differential Comment Sodium Level 141 MEQ/L Potassium Level 4.0 MEQ/L Chloride Level 108 MEQ/L Carbon Dioxide Level 24.4 MEQ/L Anion Gap 9 MEQ/L Blood Urea Nitrogen 13 MG/DL Creatinine 0.80 MG/DL Estimat Glomerular Filtration 101 ML/MIN Rate Random Glucose 88 MG/DL Calcium Level 8.6 MG/DL Assessment and Plan Problem List: (1) Hypertensive urgency (2) Elevated troponin (3) SOB (shortness of breath) (4) HLD (hyperlipidemia) Assessment and Plan 1) HTN urgency leading to mild elevation of troponin 2) Stress test with no ischemia noted 3) 2D echo pending 4) Blood pressure still somewhat elevated, will increase Lopressor, will need follow up outpatient for titration of meds for BP 5) If no problems with echo, can be discharged home from cardiovascular standpoint Dylan Sanches DO Mar 31, 2016 11:00
--- NOTE | 2016-03-31 11:48 | EC ---
Study Study Date:03/31/2016 STUDY CONCLUSIONS SUMMARY - Left ventricle: The cavity size was mildly dilated. Wall thickness was increased in a pattern of mild LVH. There was concentric hypertrophy. Systolic function was mildly reduced. The estimated ejection fraction was in the range of 45% to 50%. Diffuse hypokinesis. - Right ventricle: The cavity size was mildly dilated. If LV function is below 40, please consider prescribing an ACEI or ARB or document rationale for non-use. PROCEDURE DATA STUDY STATUS: Elective. Procedure: Transthoracic echocardiography. Image quality was good. Scanning was performed from the parasternal, apical, and subcostal acoustic windows. Study completion: The patient tolerated the procedure well. Transthoracic echocardiography. M-mode, complete 2D, complete spectral Doppler, and color Doppler. Patient status: Inpatient. CARDIAC ANATOMY LEFT VENTRICLE: The cavity size was mildly dilated. Wall thickness was increased in a pattern of mild LVH. There was concentric hypertrophy. Wall thickness measured as 8mm, but remeasured as 11-12mm. Systolic function was mildly reduced. The estimated ejection fraction was in the range of 45% to 50%. Diffuse hypokinesis. AORTIC VALVE: The valve appears to be grossly normal. Probably trileaflet. Doppler: There was no stenosis. No significant regurgitation. MITRAL VALVE: The valve appears to be grossly normal. Doppler: There was no evidence for stenosis. Trace regurgitation. Peak gradient: 2mm Hg (D). LEFT ATRIUM: The atrium was normal in size. RIGHT VENTRICLE: The cavity size was mildly dilated. PULMONIC VALVE: The valve appears to be grossly normal. Doppler: There was no evidence for stenosis. No significant regurgitation. TRICUSPID VALVE: The valve appears to be grossly normal. Doppler: There was no evidence for stenosis. Trace regurgitation. PERICARDIUM: There was no pericardial effusion. BASIC MEASUREMENTS ADULT Normal Left ventricle LV internal dimension, ED, chordal level, *64.3 mm 43-52 PLAX LV internal dimension, ES, chordal level, *52.6 mm 23-38 PLAX Fractional shortening, chordal level, PLAX *18 % >29 LV posterior wall thickness, ED 8.83 mm IVS/LVPW ratio, ED 0.98 <1.3 Ventricular septum Septal thickness, ED 8.68 mm Aortic valve Leaflet separation 23 mm 15-26 Left atrium Anterior-posterior dimension 36 mm Right ventricle RV internal dimension, ED, PLAX 30 mm 19-38 BASIC MEASUREMENTS ADULT Normal Aortic valve Leaflet separation 23 mm 15-26 Aorta Root diameter, ED *40 mm 20-37 DOPPLER MEASUREMENTS ADULT Normal Main pulmonary artery Pressure, S *36 mm Hg =30 Mitral valve Peak E-wave velocity 73.1 cm/s Peak A-wave velocity 59.2 cm/s Peak gradient, D 2 mm Hg Peak E/A ratio 1.2 Tricuspid valve Regurgitant peak velocity 225 cm/s Peak RV-RA gradient, S 20 mm Hg Maximal regurgitant velocity 225 cm/s Systemic veins Estimated CVP 10 mm Hg Right ventricle RV pressure, S *36 mm Hg <30 LEGEND: Mean values are shown as u=mean value. Asterisk (*) kraus values outside specified normal range. Prepared and signed by Dylan Sanches [id number]
[2016-03-31] MEDS ORDERED: LISI-515 PO (12:47)
[2016-03-31] MEDS ORDERED: GLUCAGON 1 MG/ML VIAL OTHER PRN (13:00)
[2016-03-31] MEDS ORDERED: DEXTROSE 50% IN WATER 50 ML VIAL(D50) IV PUSH PRN (13:00)
[2016-03-31] MEDS ORDERED: METOPROLOL TARTRATE 25 MG TAB PO SCH (21:00)
== END 2016-03-31 14:02 | disposition home or self-care (01) | DRG 305 ==
LOC: NEPC 21:02 → NEDA 03-30 00:36 → HCIN 03-30 02:34
PROVIDERS: ADMIT Hospitalist; ATTEND Hospitalist
DX: I16.0 Hypertensive urgency (principal); E78.5 Hyperlipidemia, unspecified; I10 Essential (primary) hypertension; I45.9 Conduction disorder, unspecified; R48.0 Dyslexia and alexia; R20.0 Anesthesia of skin; Z87.442 Personal history of urinary calculi
CPT/HCPCS: 71010; 71275; 78452; 80048; 80061; 80076; 82550; 82552; 82948; 83036; 83735; 83880; 84484; 85025; 85027; 85610; 85730; 93005; 93017; 93306; A9502; J1644; J2785; Q9967